=== PATIENT | female | born 1950 | race Caucasian/White ===

== ENCOUNTER → 2017-09-04 15:23 | Outpatient (CLI) | payer MEDICARE, SELFPAY ==
[2017-09-04 18:19] LABS: Absolute Lymphocyte Count 2.41 X10^3/ul (0.83-4.51); Absolute Neutrophil Count 2.6 X10^3/uL (2.0-7.7); Basophil# 0.05 X10^3/uL; Basophil% 0.8 % (0-1); Eosinophil# 0.29 X10^3/uL; Eosinophils% 4.8 % (0-5); Hematocrit 35.8 % (37-47); Hemoglobin 11.5 g/dl (12.0-15.0); Lymphocyte # 2.41 X10^3/ul (4.0); Lymphocyte % 39.7 % (19-41); Mean Corp Hgb Conc 32.1 g/gl (32-36); Mean Corpuscular Hgb 26.8 pg (27.0-32.0); Mean Corpuscular Volume 83.4 fL (81-99); Mean Platelet Vol. 12.6 fl (6.2-12.0); Monocyte# 0.69 X10^3/uL; Monocyte% 11.4 % (0-10); Neutrophil # 2.62 X10^3/uL (2.7-7.7); Neutrophil % 43.1 % (47-70); Platelet Count 220 K/mm3 (150-450); RBC Distribution Width CV 14.8 % (11.6-14.6); RBC Distribution Width SD 44.2 fl (35.1-43.9); Red Blood Count 4.29 M/mm3 (4.2-5.4); White Blood Count 6.1 K/mm3 (4.4-11.0)
[2017-09-04 18:20] LABS: POSITIVE COUNT NO; POSITIVE DIFFERENTIAL NO; POSITIVE MORPHOLOGY NO
[2017-09-04 18:39] LABS: AST(SGOT) 21 U/L (15-37); Alanine Aminotransfer ALT/SGPT 19 U/L (13-56); Albumin, Serum 3.5 g/dL (3.2-5.0); Alkaline Phosphatase 108 U/L (45-117); Anion Gap 7 (5-15); BUN 11 mg/dL (7-18); BUN/Creat Ratio 12.2 RATIO (10-20); Calcium,Total 8.5 mg/dL (8.5-10.1); Chloride 106 mmol/L (98-107); EST Glomerular Filtration Rate 67 mL/min (>60); Est Glom Filt Rate - Afr Amer 81 mL/min (>60); Globulin 3.6 g/dL (2.2-4.2); Glucose 91 mg/dL (74-106); Potassium 4.1 mmol/L (3.5-5.1); Protein, Total 7.1 g/dL (6.4-8.2); Sodium Level 140 mmol/L (136-145)
== END ==
PROVIDERS: Visit Provider Internal Medicine Rheumatology
DX: M06.4 Inflammatory polyarthropathy (principal); M79.7 Fibromyalgia; M18.0 Bilateral primary osteoarthritis of first carpometacarpal joints; H33.301 Unspecified retinal break, right eye; H33.002 Unspecified retinal detachment with retinal break, left eye; J45.909 Unspecified asthma, uncomplicated; I48.91 Unspecified atrial fibrillation; Z79.899 Other long term (current) drug therapy
CPT/HCPCS: 36415; 80053; 85025

== ENCOUNTER → 2017-11-20 14:49 | Outpatient (CLI) | payer MEDICARE, SELFPAY ==
--- NOTE | 2017-11-20 14:49 | DT_ITS ---
This patient was seen during an EMR downtime November 18, 2017 - November 25, 2017. This patient may have a combination of paper and electronic documentation or all paper documentation. All documentation is viewable within the e-chart portion of [employer] for each patient visit.
--- NOTE | 2017-11-20 14:55 | RAD_ITS ---
STUDY: X-RAY - RIGHT SHOULDER REASON FOR EXAM: Female, 67 years old. Pain. Limited range of motion. Inflammatory polyarthropathy. TECHNIQUE: 4 view(s) of the shoulder. COMPARISON: None. FINDINGS: There is mild degenerative arthrosis of the glenohumeral articulation. There is degenerative arthrosis of the acromioclavicular joint without inferior osseous spur formation. Normal acromion. There is no acute fracture, dislocation or destructive osseous pathology. There is demineralization of the humerus and visualized osseous structures. The soft tissue structures are unremarkable. Normal visualized pulmonary apex. RAD/Shoulder min 2 Views IMPRESSION: Mild arthrosis of the right shoulder. Electronically Signed: Reji Son DO at 15:47 EDT Tel [phone], Service support ,
--- NOTE | 2017-11-20 14:55 | RAD_ITS ---
STUDY: X-RAY - LEFT SHOULDER REASON FOR EXAM: Female, 67 years old. Pain and limited range of motion. Inflammatory polyarthropathy. TECHNIQUE: 4 view(s) of the shoulder. COMPARISON: None. FINDINGS: There is mild degenerative arthrosis of the glenohumeral articulation. There is degenerative arthrosis of the acromioclavicular joint without inferior osseous spur formation. Normal acromion. There is no acute fracture, dislocation or destructive osseous pathology. There is demineralization of the humerus and visualized osseous structures. The soft tissue structures are unremarkable. Normal visualized pulmonary apex. RAD/Shoulder min 2 Views IMPRESSION: Mild arthrosis of the left shoulder. Electronically Signed: Reji Son DO at 15:47 EDT Tel [phone], Service support ,
== END ==
PROVIDERS: Visit Provider Internal Medicine Rheumatology
DX: M06.4 Inflammatory polyarthropathy (principal); Z79.899 Other long term (current) drug therapy; M79.7 Fibromyalgia; M18.0 Bilateral primary osteoarthritis of first carpometacarpal joints; H33.301 Unspecified retinal break, right eye; H33.002 Unspecified retinal detachment with retinal break, left eye; J45.909 Unspecified asthma, uncomplicated; I48.91 Unspecified atrial fibrillation
CPT/HCPCS: 73030

== ENCOUNTER → 2024-04-07 | Outpatient (CLI) | payer MEDICARE, SELFPAY ==
[2024-04-07 13:40] LABS: Pathologist Comment May follow
[2024-04-07 14:24] LABS: Synovial Fld Mononuclear WBC # 0.074 10^3/ul; Synovial Fld Polynuclear WBC # 0.012 10^3/uL
[2024-04-07 15:18] LABS: AUTO B FLUID DILUENT BKGD CT WBC <0.1 RBC <0.01 (W<.1,R<.01); CRYSTALS, BODY FLUID NO CRYSTALS SEEN; Source- Body Fluid SYNOVIAL
[2024-04-07 15:19] LABS: Appearance /Synovial Fluid Clear (CLEAR); Color / Synovial Fluid Yellow (Pale Yellow); Source / Synovial Fluid L HIP JOINT
[2024-04-07 15:20] LABS: RBC /Synovial Fluid 47 /mm3 (0)
[2024-04-07 15:57] LABS: Body Fluid QC Type(s) BF1,BF2; Lymph 70 %; Monocyte /Synovial Fluid 26 %; Neutrophil 4 % (0-25)
[2024-04-08 14:05] LABS: Pathologist Review Reviewed
== END | disposition home or self-care (01) ==
PROVIDERS: Referring Provider Internal Medicine Rheumatology; Visit Provider Internal Medicine Rheumatology
DX: M06.4 Inflammatory polyarthropathy (principal); M25.552 Pain in left hip; M79.7 Fibromyalgia; M16.0 Bilateral primary osteoarthritis of hip
CPT/HCPCS: 87070; 87075; 87205; 89050; 89051; 89060